=== PATIENT | female | born 1950 | race Asian ===

== ENCOUNTER 2020-11-02 12:11 | Emergency (ER) | payer MEDICARE, OTHER ==
[~2020-11-02] VITALS: Ht 162.6 cm; Wt 96.9 kg
[2020-11-02] MEDS ORDERED: DIPH,PERTUSS(ACELL),TET VAC/PF 0.5 ML IM-VACC ONE ×2 (12:30→14:30)
--- NOTE | 2020-11-02 14:16 | NUR ---
PT ROOMED FROM [facility]OBBY
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
[2020-11-02] MEDS ORDERED: NEOSPORIN OINT. PKT 1 PACKET ONE (14:46)
[2020-11-02 15:09] VITALS: BP 133/77
== END 2020-11-02 15:12 | disposition home or self-care (01) ==
LOC: ED 14:46
DX: S00.03XA Contusion of scalp, initial encounter (principal); S00.83XA Contusion of other part of head, initial encounter; S00.12XA Contusion of left eyelid and periocular area, initial encounter; X58.XXXA Exposure to other specified factors, initial encounter; Y93.89 Activity, other specified; Y92.009 Unspecified place in unspecified non-institutional (private) residence as the place of occurrence of the external cause; Y99.8 Other external cause status
CPT/HCPCS: 70450; 90471; 90715